=== PATIENT | male | born 1955 | race Caucasian/White ===

== ENCOUNTER 2016-12-21 02:43 | Observation (INO) | payer BC ==
[2016-12-21] MEDS ORDERED: Sodium Chloride 0.9% 1000 ML 1,000 ML IV STA (03:05)
--- NOTE | 2016-12-21 03:13 | ERPHSYRPT ---
- History of Present Illness Time Seen by Provider: 12/21/16 03:00 Historian: patient ([id number]) Exam Limitations: clinical condition Patient Subjective Stated Complaint: PT COMPLAINS OF RIGHT SIDE LOWER ABDOMINAL PAIN. STATES STARTED LAST NIGHT STATES DOES HAVE HX OF KIDNEY. STONES DENIES BLOOD IN URINE OR BURNING WITH URINATION. PT STATES HAS BEEN NASUATED DENIES DIARRHEA DENIES FEVER Triage Nursing Assessment: PT ALERT WARM ADN DRY RESP EASY NON LABORED PT AMBULATEDT O ROOM WITHOUT DIFFICULTY PAIN ON PALPATION TO RIGHT LOWER QUAD ABDOMEN SOFT. Physician History: PATIENT WITH A HISTORY OF KIDNEY STONES COMPLAINS OF PERIUMBILICAL PAIN PAST FEW HOURS NOW LOCALIZED TO RIGHT LOWER ABDOMEN. DENIES URINARY SYMPTOMS, EMESIS , FEVER, RADIATION OF PAIN TO FLANK. Timing/Duration: hour(s) Activities at Onset: none Quality: sharpness Abdominal Pain Onset Location: RLQ, periumbilical Pain Radiation: no radiation Severity of Pain-Max: moderate Severity of Pain-Current: moderate Modifying Factors: Improves With: nothing Associated Symptoms: nausea Previous symptoms: same symptoms as today Allergies/Adverse Reactions: No Known Drug Allergies Allergy (Unverified 07/24/12 06:28) Home Medications: No Reportable Medications [No Reported Medications] 12/21/16 [History] Hx Tetanus, Diphtheria Vaccination/Date Given: Yes Hx Influenza Vaccination/Date Given: No Hx Pneumococcal Vaccination/Date Given: No Immunizations Up to Date: Yes - Review of Systems Constitutional: No Fever, No Chills Eyes: No Symptoms Ears, Nose, & Throat: No Symptoms Respiratory: No Cough, No Dyspnea Cardiac: No Symptoms, No Chest Pain, No Edema, No Syncope Abdominal/Gastrointestinal: Abdominal Pain, Nausea, Vomiting, No Diarrhea Genitourinary Symptoms: No Symptoms, No Dysuria Musculoskeletal: No Symptoms, No Back Pain, No Neck Pain Skin: No Symptoms, No Rash Neurological: No Dizziness, No Focal Weakness, No Sensory Changes Psychological: No Symptoms Endocrine: No Symptoms All Other Systems: Reviewed and Negative - Past Medical History Pertinent Past Medical History: No Neurological History: No Pertinent History ENT History: No Pertinent History Cardiac History: No Pertinent History Respiratory History: No Pertinent History Endocrine Medical History: No Pertinent History Musculoskeletal History: No Pertinent History History: Other Psycho-Social History: No Pertinent History Male Reproductive Disorders: No Pertinent History Other Medical History: kidney stones - Past Surgical History Past Surgical History: No Neuro Surgical History: No Pertinent History Cardiac: No Pertinent History Respiratory: No Pertinent History Gastrointestinal: No Pertinent History Genitourinary: Other Musculoskeletal: No Pertinent History Male Surgical History: No Pertinent History Other Surgical History: kidney stone removals - Social History Smoking Status: Never smoker Exposure to second hand smoke: No Drug Use: none Patient Lives Alone: No - Nursing Vital Signs Nursing Vital Signs: Initial Vital Signs Temperature 98.5 F Temperature Source Oral Pulse Rate 81 Respiratory Rate 16 Blood Pressure [] 149/76 Pain Intensity 3 - Physical Exam General Appearance: no apparent distress, alert Eye Exam: PERRL/EOMI, eyes nml inspection Ears, Nose, Throat Exam: normal ENT inspection, pharynx normal, moist mucous membranes Neck Exam: normal inspection, non-tender, supple, full range of motion Respiratory Exam: normal breath sounds, lungs clear, No respiratory distress Cardiovascular Exam: regular rate/rhythm, normal heart sounds Gastrointestinal/Abdomen Exam: soft, normal bowel sounds (PERIUMBILICAL TENDERNESS), tenderness, No mass Back Exam: normal inspection, normal range of motion, No CVA tenderness, No vertebral tenderness Extremity Exam: normal inspection, normal range of motion, pelvis stable Neurologic Exam: alert, oriented x 3, cooperative, normal mood/affect, nml cerebellar function, sensation nml, No motor deficits Skin Exam: normal color, warm, dry SpO2 Interpretation: normal SpO2: 95 Oxygen Delivery: Room Air - CT Exams Abdomen/Pelvis CT Interpretation: Tele-radiologist Report (THE APPENDIX IS ENLARGED UP TO 1CM WITH SURROUNDING INFLAMMATORY CHANGES C/W ACUTE APPENDICITIS WITHOUT PERFORATION ) Ordered Tests: Active Orders 24 hr Category Date Time Status Clean Catch Urine Specimen STAT Care 12/21/16 03:05 Active EKG-ER Only STAT Care 12/21/16 05:42 Active IV Insertion STAT Care 12/21/16 03:05 Active ABDOMEN AND PELVIS W CONTRAST [CT] Stat Exams 12/21/16 03:07 Taken CHEST 1 VIEW (PORTABLE) Stat Exams 12/21/16 05:43 Ordered AMYLASE Stat Lab 12/21/16 03:15 Completed BMP Stat Lab 12/21/16 03:15 Completed CBC W DIFF Stat Lab 12/21/16 03:15 Completed LIPASE Stat Lab 12/21/16 03:15 Completed PT INR [PROTIME WITH INR] Stat Lab 12/21/16 03:30 Completed UA W/RFX UR CULTURE Stat Lab 12/21/16 03:15 Completed Medication Summary Generic Name Dose Route Start Last Admin Trade Name Gray PRN Reason Stop Dose Admin Lactated Ringer's 1,000 mls @ 100 mls/hr 12/21/16 06:00 12/21/16 06:02 Lactated Ringers IV 01/20/17 05:59 100 mls/hr .Q10H LIBAN Administration Discontinued Medications Generic Name Dose Route Start Last Admin Trade Name Gray PRN Reason Stop Dose Admin Bupivacaine HCl Confirm 12/21/16 06:05 Sensorcaine 0.25% 10 Ml Administered 12/21/16 06:06 Dose 10 ml .ROUTE .STK-MED ONE Hydromorphone HCl 1 mg 12/21/16 04:06 12/21/16 04:14 Hydromorphone 1 Mg/Ml Ampule IV 12/21/16 04:07 1 mg STAT ONE Administration Hydromorphone HCl Confirm 12/21/16 04:10 Hydromorphone 1 Mg/Ml Ampule Administered 12/21/16 04:11 Dose 1 mg .ROUTE .STK-MED ONE Sodium Chloride 1,000 mls @ 500 mls/hr 12/21/16 03:05 12/21/16 03:21 Sodium Chloride 0.9% 1000 Ml IV 12/21/16 05:04 500 mls/hr .Q2H STA Administration Sodium Chloride Confirm 12/21/16 03:14 Sodium Chloride 0.9% 1000 Ml Administered 12/21/16 03:15 Dose 1,000 mls @ ud .ROUTE .STK-MED ONE Lactated Ringer's Confirm 12/21/16 05:54 Lactated Ringers Administered 12/21/16 05:55 Dose 1,000 mls @ ud IV .STK-MED ONE Cefoxitin Sodium Confirm 12/21/16 06:03 Mefoxin 2 Gm Premix Administered 12/21/16 06:04 Dose 2 gm in 50 mls @ ud IV .STK-MED ONE Ondansetron HCl 4 mg 12/21/16 04:06 12/21/16 04:12 Zofran 4 Mg/2 Ml Vial IV 12/21/16 04:07 4 mg STAT ONE Administration Ondansetron HCl Confirm 12/21/16 04:10 Zofran 4 Mg/2 Ml Vial Administered 12/21/16 04:11 Dose 4 mg .ROUTE .STK-MED ONE Lab/Rad Data: Laboratory Result Diagrams 12/21/16 03:15 12/21/16 03:15 Laboratory Results 12/21/16 12/21/16 12/21/16 Range/Units 03:30 03:15 03:15 WBC (4.0-10.5) K/mm3 RBC (4.1-5.6) M/mm3 Hgb (12.5-18.0) gm/dl Hct (42-50) % MCV (78-100) fl MCH (26-32) pg MCHC (32-36) g/dl RDW (11.5-14.0) % Plt Count (150-450) K/mm3 MPV (6-9.5) fl Gran % (36.0-66.0) % Lymphocytes % (24.0-44.0) % Monocytes % (0.0-12.0) % Eosinophils % (0.00-5.0) % Basophils % (0.0-0.4) % Basophils # (0-0.4) INR 1.09 (0.8-3.0) Sodium 135 L (136-145) mEq/L Potassium 4.0 (3.5-5.1) mEq/L Chloride 100 (98-107) mEq/L Carbon Dioxide 22.1 (21-32) mEq/L Anion Gap 17.1 H (5-15) MEQ/L BUN 11 (9-20) mg/dL Creatinine 0.99 (0.55-1.30) mg/dl Estimated GFR > 60 ML/MIN Glucose 160 H (70-110) MG/DL Calcium 8.7 (8.5-10.1) mg/dL Amylase 39 (25-115) U/L Lipase 110 (73-393) U/L Ur Collection Type CLEAN CATCH Urine Color YELLOW (YELLOW) Urine Appearance CLEAR (CLEAR) Urine pH 6.0 (5-6) Ur Specific [place] 1.010 (1.005-1.025) Urine Protein NEGATIVE (Negative) Urine Ketones NEGATIVE (NEGATIVE) Urine Blood NEGATIVE (0-5) Timmy/ul Urine Nitrite NEGATIVE (NEGATIVE) Urine Bilirubin NEGATIVE (NEGATIVE) Urine Urobilinogen NORMAL (0-1) mg/dL Ur Leukocyte Esterase NEGATIVE (NEGATIVE) Urine Glucose NEGATIVE (NEGATIVE) mg/dL Specimen Received 12/21/16 0330 12/21/16 Range/Units 03:15 WBC 15.5 H (4.0-10.5) K/mm3 RBC 5.08 (4.1-5.6) M/mm3 Hgb 15.7 (12.5-18.0) gm/dl Hct 44.0 (42-50) % MCV 86.6 (78-100) fl MCH 30.9 (26-32) pg MCHC 35.7 (32-36) g/dl RDW 12.8 (11.5-14.0) % Plt Count 209 (150-450) K/mm3 MPV 11.4 H (6-9.5) fl Gran % 89.5 H (36.0-66.0) % Lymphocytes % 6.1 L (24.0-44.0) % Monocytes % 4.2 (0.0-12.0) % Eosinophils % 0.1 (0.00-5.0) % Basophils % 0.1 (0.0-0.4) % Basophils # 0.01 (0-0.4) INR (0.8-3.0) Sodium (136-145) mEq/L Potassium (3.5-5.1) mEq/L Chloride (98-107) mEq/L Carbon Dioxide (21-32) mEq/L Anion Gap (5-15) MEQ/L BUN (9-20) mg/dL Creatinine (0.55-1.30) mg/dl Estimated GFR ML/MIN Glucose (70-110) MG/DL Calcium (8.5-10.1) mg/dL Amylase (25-115) U/L Lipase (73-393) U/L Ur Collection Type Urine Color (YELLOW) Urine Appearance (CLEAR) Urine pH (5-6) Ur Specific [place] (1.005-1.025) Urine Protein (Negative) Urine Ketones (NEGATIVE) Urine Blood (0-5) Timmy/ul Urine Nitrite (NEGATIVE) Urine Bilirubin (NEGATIVE) Urine Urobilinogen (0-1) mg/dL Ur Leukocyte Esterase (NEGATIVE) Urine Glucose (NEGATIVE) mg/dL Specimen Received - Progress Discussed with : Tamica (CONSULTED DR RAMIREZ AT 0535 FOR EMERGENCY SURGERY) - Departure Time of Disposition: 06:00 Departure Disposition: Observation Clinical Impression: ACUTE APPENDICITIS Condition: Stable Critical Care Time: No Referrals: ANGI OROSCO [Primary Care Provider] -
[2016-12-21] MEDS ORDERED: Sodium Chloride 0.9% 1000 ML 1,000 ML ONE (03:14)
[2016-12-21 03:32] LABS: BASOPHIL % 0.1 % (0.0-0.4); Eosinophil % 0.1 % (0.00-5.0); Granulocytes % 89.5 % (36.0-66.0); Lymphocytes % 6.1 % (24.0-44.0); Mean Cell Volume 86.6 fl (78-100); Mean Corpuscular Hemoglobin 30.9 pg (26-32); Mean Platelet Volume 11.4 fl (6-9.5); Monocytes % 4.2 % (0.0-12.0); Platelet Count 209 K/mm3 (150-450); Red Blood Count 5.08 M/mm3 (4.1-5.6); Red Cell Distribution Width 12.8 % (11.5-14.0); White Blood Count 15.5 K/mm3 (4.0-10.5)
[2016-12-21 03:49] LABS: ANION GAP 17.1 MEQ/L (5-15); BLOOD UREA NITROGEN 11 mg/dL (9-20); CHLORIDE 100 mEq/L (98-107); Carbon Dioxide 22.1 mEq/L (21-32); Glucose 160 MG/DL (70-110); LIPASE 110 U/L (73-393); SODIUM 135 mEq/L (136-145)
[2016-12-21 03:56] LABS: ADD URINE CULTURE? NO (NO); Bilirubin NEGATIVE (NEGATIVE); Blood NEGATIVE Ery/ul (0-5); COMPLETE URINE MICROSCOPIC? NO; Collection Type CLEAN CATCH; Glucose NEGATIVE (NEGATIVE); Leukocyte Esterase NEGATIVE (NEGATIVE)
[2016-12-21] MEDS ORDERED: Zofran 4 MG/2 ML VIAL IV ONE ×2 (04:06→08:30)
[2016-12-21] MEDS ORDERED: Hydromorphone 1 mg/ml Ampule IV ONE (04:06)
[2016-12-21] MEDS ORDERED: Hydromorphone 1 mg/ml Ampule ONE (04:10)
[2016-12-21] MEDS ORDERED: Zofran 4 MG/2 ML VIAL ONE (04:10)
[2016-12-21 05:50] LABS: INR 1.09 (0.8-3.0); PROTIME 12.3 SECONDS (8.83-12.87)
[2016-12-21] MEDS ORDERED: Lactated Ringers 1,000 ML IV ONE (05:54)
[2016-12-21] MEDS ORDERED: Lactated Ringers 1,000 ML IV SCH (06:00)
[2016-12-21] MEDS ORDERED: MEFOXIN 2 GM PREMIX** 2 GM/50 ML ML IV ONE (06:03)
[2016-12-21] MEDS ORDERED: Sensorcaine 0.25% 10 ML ONE (06:05)
[2016-12-21] MEDS ORDERED: TORAdol 30 mg Injection IV ONE (08:30)
[2016-12-21] MEDS ORDERED: Quelicin Fliptop 200 MG/10 ML IV ONE (08:30)
[2016-12-21] MEDS ORDERED: Decadron 4 MG INJ IV ONE (08:30)
[2016-12-21] MEDS ORDERED: Zemuron 100 MG/10 ML IV ONE (08:30)
[2016-12-21] MEDS ORDERED: DIPRIVAN 200 MG/20 ML IV ONE (08:30)
[2016-12-21] MEDS ORDERED: SUBLIMAZE 100 MCG/2 ML IV ONE (08:30)
[2016-12-21] MEDS ORDERED: MORPHINE SULFATE 4 MG INJ IV PRN (08:51)
[2016-12-21] MEDS ORDERED: NORCO 5/325 MG PO PRN (08:51)
[2016-12-21] MEDS ORDERED: Zofran 4 MG/2 ML VIAL IV PRN (08:52)
[2016-12-21] MEDS ORDERED: D5W/0.45NS W/ 20mEq KCl 1000 ML 1,000 ML IV SCH (09:00)
[2016-12-21] MEDS: Zosyn 3.375GM/100 Ml D5W 3.375 GM/100 ML IVPB IV SCH ×3 (09:05→22:02)
--- NOTE | 2016-12-21 09:33 | CONS ---
CONSULT DATE: 12/21/2016 HISTORY: The patient is a 61 year-old gentleman developed abdominal pain at 5 o'clock yesterday and localized to right lower quadrant. A little bit of nausea. No bloody stools or diarrhea. He did not have any fever. He had a white blood cell count of 15.5 according to the emergency room staff. PAST MEDICAL HISTORY: He has history of kidney stones. He denied any other chronic illnesses. PAST SURGICAL HISTORY: He denied any prior abdominal surgeries. MEDICATIONS: None on a regular basis. ALLERGIES: NKDA. FAMILY HISTORY: Negative for any major medical problems according to the patient. SOCIAL HISTORY: He quit smoking back in 1997. No current smoking. He drinks an occasional beer, denies alcohol abuse. REVIEW OF SYSTEMS: Twelve systems reviewed pertinent for as noted above, pertinent for the right lower quadrant pain. History of nausea. No chest pain or palpitations. Otherwise pertinent for the kidney stones. Other systems negative or noncontributory as above and per preadmission questionnaire. PHYSICAL EXAMINATION: GENERAL: No acute distress. HEENT: Sclera nonicteric. NECK: No JVD. CHEST: Equal excursion, nonlabored breathing. CVS: Regular rate and rhythm and pulse. ABDOMEN: Soft, localized tenderness, some mild guarding right lower quadrant. No rebound currently. EXTREMITIES: No significant edema. NEURO: Alert, moving extremities grossly symmetrically. No gross motor deficits noted. LAB DATA AND TESTS: CT scan showed some inflammatory changes consistent with acute appendicitis. IMPRESSION: Acute right lower quadrant pain. History and physical exam findings, labs and CT findings suspicious for acute appendicitis. I feel the patient would benefit from diagnostic laparoscopy, laparoscopic appendectomy possible open when OR time available. Risks and benefits explained in detail but not limited to bleeding or infection, risk of trocar injury or hernia, small risk bowel, bladder or blood vessel injury, small risk of subsequent intra-abdominal abscess or fistula formation possibly requiring percutaneous or open drainage even at a later date, general risk of anesthesia, deep venous thrombosis, pulmonary embolism, pneumonia, perioperative risk of aches, pains, bloating, constipation and/or ileus. He also understands the possibility of finding a normal appendix likely will remove incidentally and look for other etiology that might need taken care of surgically. General risk of anesthesia, deep venous thrombosis, pulmonary embolism, pneumonia. He also understands the possibility to convert to an open procedure as well as possibility of postoperative ileus or obstruction but not limited to. He understands and agrees to the planned procedure, will proceed with diagnostic laparoscopy, laparoscopic appendectomy possible open when OR time available.
--- NOTE | 2016-12-21 14:59 | XRAY ---
Exam: AP upright portable chest film from 0608 hrs. on 12/21/2016. Comparison: AP portable chest film from 11/14/2007. Indication: Cough, sinus drainage. Findings: The exam was obtained in a lordotic projection. The transverse heart size is normal. Pulmonary vascularity appears within normal limits. The level of inspiration is slightly decreased, but this is unchanged. There appears to be some minimal linear scarring versus chronic plate atelectasis at both lung bases. This is similar to 11/14/2007. No air space infiltrates, pneumothorax, or pleural fluid is seen. The bones appear grossly intact. Impression: 1. No acute cardio pulmonary disease is seen. 2. Minimal linear scarring versus chronic plate atelectasis at both lung bases. This is similar to 11/14/2007.
--- NOTE | 2016-12-21 20:11 | XRAY ---
Exam: CT of the abdomen and pelvis with IV contrast from 12/21/2016. CTDI: 23.48 Comparison: CT of the abdomen and pelvis without IV contrast from 06/04/2014. Indication: Right lower quadrant abdominal pain 12 hours without nausea, elevated white blood cell count of 15,500, history of renal stones. Technique: Post-IV contrast axial images were obtained through the abdomen and pelvis during automated injection of 80 cc of Isovue-370 IV contrast material. Reconstructed coronal and sagittal images were created and reviewed. Findings: The lung bases reveal a couple calcified granulomas within the lingula. Mild posterior dependent atelectatic changes are seen at each lung base. The heart size is normal. I believe there is a minimal hiatal hernia. I believe there is mild hepatic steatosis. No focal liver lesion is seen. The gallbladder is of unremarkable size and reveals no dense calcifications within it. No biliary duct distention is seen. The spleen is of normal size. On axial image #27 I note a small hyper attenuated lesion within the spleen measuring 7 mm in diameter consistent with a small hemangioma. The pancreas and right adrenal gland appear unremarkable. The left adrenal gland is remarkable for a 1.3 cm in width lesion which is unchanged from 06/04/2014 and likely represents an adenoma. On the prior non-IV contrast CT study from 2013, this measured +5 Hounsfield units. The kidneys are of average size and shape. Prior obstructing left ureteral stone on 06/04/2014 is no longer seen. However, there are 2 nonobstructing stones within the upper pole of the right kidney, one measuring 8 mm in diameter and the other measuring 5 mm in diameter. I also see a nonobstructing 5 mm stone within the upper pole of the left kidney and a 7 mm in diameter nonobstructing stone within the inferior pole of the left kidney. A small extrarenal pelvis is seen on the left. I suspect some minimal left peripelvic renal cysts. No ureteral stones are seen. The urinary bladder is distended and appears unremarkable. The abdominal aorta is of normal diameter. No abnormal retroperitoneal lymphadenopathy is seen. There is no free intraperitoneal air. The appendix appears distended measuring up to 10-11 mm in diameter and reveals some periappendiceal stranding suggesting inflammation. This is probably best appreciated on sagittal images #45 through #49. This is consistent with acute appendicitis. No adjacent abscess or loculated fluid collection is seen. Scattered colonic diverticulosis is seen within the transverse colon, the descending colon, and the proximal sigmoid colon. I see no evidence of acute diverticulitis. Pelvic lymph nodes are not enlarged. No free fluid is seen. The seminal vesicles appear unremarkable. Scattered calcifications are seen within a 4.8 cm in width prostate gland. This is essentially unchanged. Some small calcified phleboliths are seen within the lower pelvis to the right of midline. The skeleton reveals no acute fracture or other aggressive bone lesion. A fat-containing left inguinal hernia is seen. A few small postinflammatory lymph nodes are seen within the groin bilaterally. Impression: 1. CT findings consistent with acute appendicitis. No evidence of perforation is seen. 2. There are 2 nonobstructing stones within each kidney, as discussed above. Prior proximal left ureteral obstructing stone on 06/04/2014 is no longer seen. 3. Minimal hiatal hernia, mild hepatic steatosis, and some colonic diverticulosis without evidence of diverticulitis are seen. There is also a stable left adrenal gland nodule, likely representing an adenoma.
[2016-12-21] MEDS: Sodium Chloride 0.9% 10 ML FLUSH Syringe IV SCH (22:33)
[2016-12-22] MEDS: Zosyn 3.375GM/100 Ml D5W 3.375 GM/100 ML IVPB IV SCH ×2 (03:45→09:50)
[2016-12-22] MEDS: Sodium Chloride 0.9% 10 ML FLUSH Syringe IV SCH (05:08)
[2016-12-22 05:37] LABS: Mean Cell Volume 89.6 fl (78-100); Mean Corpuscular Hemoglobin 31.1 pg (26-32); Mean Platelet Volume 11.1 fl (6-9.5); Platelet Count 189 K/mm3 (150-450); Red Cell Distribution Width 13.4 % (11.5-14.0); White Blood Count 11.6 K/mm3 (4.0-10.5)
[2016-12-22 15:05] VITALS: BP 129/63; PULSE 82; O2SAT 95
--- NOTE | 2017-01-02 12:48 | OP ---
NOTE: This was dictated on the day of the procedure but somehow it is not showing up on the system so this is a redictation. SURGERY DATE/TIME: 12/21/2016 0652 PREOPERATIVE DIAGNOSIS: Acute right lower quadrant pain, acute appendicitis by CT scan. POSTOPERATIVE DIAGNOSIS: Acute appendicitis. PROCEDURE: Laparoscopic appendectomy. SURGEON: Dr. Hussain Adan. ANESTHESIA: General. ESTIMATED BLOOD LOSS: Minimal. INDICATIONS: As noted above. Risks and benefits explained in detail but not limited to, consent obtained. DESCRIPTION OF PROCEDURE AND FINDINGS: The patient was taken to the operating room. General anesthesia was induced. Abdomen prepped and draped in usual sterile fashion. After official time out and no disagreement with planned procedure, a transverse incision made at supraumbilical area. Fascia grasped and pulled upwards. Veress needle inserted and tested with saline. Pneumoperitoneum accomplished insufflating from opening pressure of 0 to 15. A 5 mm bladeless port and camera were inserted without difficulty followed by a lower midline 5 mm port and a 12 mm right mid abdomen port. Noted to have thickened, inflamed appendix. I felt he warranted appendectomy. It was carefully mobilized upwards. EndoGIA stapler fired across the base of the appendix, fired across the residual mesoappendix. Appendix placed in Ple[place]man sac pulled free and passed off. Port is replaced. Copious amount of irrigation irrigating until clear. Staple line intact mesoappendix and cecum. No signs of any active bleeding or leakage. At this point fascial defect right mid abdomen was closed with 12 mm defect closed with puncture closure device with #1 Vicryl. Irrigation had been clear. Pneumoperitoneum decompressed. The wound is irrigated out. Skin incision closed with 4-0 Vicryl. Steri-Strips and sterile dressing applied. 0.25% Marcaine local injected along the skin incision fascial defects. The patient tolerated the procedure well. There were no immediate complications. Findings discussed with the family out in the waiting area.
== END 2016-12-22 14:50 | disposition home or self-care (01) ==
LOC: ED 02:43 → INTOOBSV 06:41 → MED SURG 06:41
PROVIDERS: ADMIT Surgery; ATTEND Surgery
PROC: 0DTJ4ZZ Resection of Appendix, Percutaneous Endoscopic Approach (ICD-10-PCS; principal; 2016-12-21)
DX: K35.80 Unspecified acute appendicitis (principal); Z87.442 Personal history of urinary calculi
CPT/HCPCS: 00840; 36000; 36415; 71010; 74177; 80048; 81002; 82150; 83690; 85025; 85027; 85610; 88304; 93005; 94760; 96360; 96361; 99140; 99285; G0378; J0330; J0694; J1100; J1170; J1885; J2405; J2543; J2704; J3010; A9270-GY

== ENCOUNTER 2023-10-30 05:58 | Day surgery (SDC) | payer BC ==
[2023-10-30] MEDS: Lactated Ringers 1,000 ML IV SCH (06:31)
[2023-10-30] MEDS ORDERED: DIPRIVAN 200 MG/20 ML IV ONE (07:56)
[2023-10-30] MEDS ORDERED: Xylocaine-Mpf 2% 5 Ml Vial ONE (07:56)
[2023-10-30] MEDS ORDERED: ROBINUL ONE (08:04)
[2023-10-30] MEDS ORDERED: ATROPINE SULFATE 1MG ONE (08:05)
[2023-10-30 08:46] VITALS: PULSE 63; RESP 16; TEMP 98.1; O2SAT 95
[2023-10-30 09:00] VITALS: BP 135/83
--- NOTE | 2023-10-30 12:44 | OP ---
SURGERY DATE/TIME: 10/30/2023 0801 PREOPERATIVE DIAGNOSIS: Screening exam. POSTOPERATIVE DIAGNOSIS: Sigmoid diverticulosis. PROCEDURE: Colonoscopy. SURGEON: Dr. Rojas. ANESTHESIA: Medications given by anesthesia department. HISTORY: The patient is a 68-year-old white male presenting now for screening colonoscopy. He was appraised of the risks of the procedure including the risk of perforation, phlebitis, untoward reaction to medication, bleeding and missed lesions. The patient verbalized his understanding and desired to have the procedure performed. DESCRIPTION OF PROCEDURE: The patient was given the medications by the anesthesia department. He had continuous pulse oximetry, ECG monitoring and intermittent blood pressure monitoring during the examination. He was placed in the left lateral decubitus position. A digital rectal examination was performed and revealed normal anal sphincter tone, no masses and a normal prostate. The flexible Olympus pediatric colonoscope was used to intubate the rectum. A view of the colon was developed sequentially to the cecum. Upon insertion and withdrawal, it was noted sigmoid diverticulosis. No other mucosal lesions were encountered. The scope was removed from the patient who tolerated the procedure well and was sent back to OP recovery in good condition. The prep was noted to be fair to good.
== END 2023-10-30 09:07 | disposition home or self-care (01) ==
LOC: SDC 05:58
PROVIDERS: ATTEND Family Medicine
DX: Z12.11 Encounter for screening for malignant neoplasm of colon (principal); K57.30 Diverticulosis of large intestine without perforation or abscess without bleeding
CPT/HCPCS: 82947; G0121; J0461; J2704